=== PATIENT | male | born 1960 | race Caucasian/White ===

== ENCOUNTER 2017-07-02 09:23 | Day surgery (SDC) | payer MEDICAID ==
[2017-07-02] MEDS ORDERED: LR 1,000 ML IV ONE (10:15)
[2017-07-02] MEDS ORDERED: LIDOCAINE 1% 2 ML INJ ID PRN (10:15)
--- NOTE | 2017-07-02 10:43 | PDANEPAE ---
ANE History of Present Illness GERD ANE Past Medical History - Cardiovascular History Hx Hypertension: No Hx Arrhythmias: No Hx Chest Pain: No Hx Coronary Artery / Peripheral Vascular Disease: No Hx CHF / Valvular Disease: No Hx Palpitations: No Cardiovascular History Comment: 2 yrs ago air starvation when pushing car. 7mins to recover. - Pulmonary History Hx COPD: No Hx Asthma/Reactive Airway Disease: No Hx Recent Upper Respiratory Infection: No Hx Oxygen in Use at Home: No Hx Sleep Apnea: No Sleep Apnea Screening Result - Last Documented: Positive Pulmonary History Comment: asthma, with bronchitis - Neurologic History Hx Cerebrovascular Accident: No Hx Seizures: No Hx Dementia: No - Endocrine History Hx Diabetes: No - Renal History Hx Renal Disorders: No - Liver History Hx Hepatic Disorders: No - Neurological & Psychiatric Hx Hx Neurological and Psychiatric Disorders: No - Cancer History Hx Cancer: No - Congenital Disorder History Hx Congenital Disorders: No - GI History Hx Gastrointestinal Disorders: Yes Gastrointestinal History Comment: reflux,gerd 7 yrs ago, cough up food ? aspiration issues. - Other Health History Other Health History: none, pt is on humira 40mg q 2 weeks - Chronic Pain History Chronic Pain: No - Surgical History Prior Surgeries: none ANE Review of Systems Review of Systems: - Exercise capacity METS (RN): 4 METS ANE Patient History - Allergies Allergies/Adverse Reactions: No Known Allergies Allergy (Unverified 07/19/15 08:21) - Home Medications Home Medications: Adalimumab [Humira] 07/02/17 [Last Taken 1 Day Ago ~07/01/17] PRILOSEC 07/02/17 [Last Taken 1 Day Ago ~07/01/17] RX: Colchicine 07/02/17 [Last Taken 1 Day Ago ~07/01/17] - NPO status NPO Since - Liquids (Date): 07/02/17 NPO Since - Liquids (Time): 07:00 NPO Since - Solids (Date): 07/01/17 NPO Since - Solids (Time): 22:00 - Smoking Hx Smoking Status: Never smoked - Family Anes Hx Family Hx Anesthesia Complications: none ANE Labs/Vital Signs - Vital Signs Blood Pressure: 128/89 Heart Rate: 61 Respiratory Rate: 18 O2 Sat (%): 95 Height: 177.8 cm Weight: 95.254 kg ANE Physical Exam - Airway Neck exam: FROM Mallampati Score: Class 2 Mouth exam: normal dental/mouth exam - Pulmonary Pulmonary: no respiratory distress - Cardiovascular Cardiovascular: regular rate and rhythym - ASA Status ASA Status: II
--- NOTE | 2017-07-02 11:17 | PDGENHP ---
History & Physical Chief Complaint: GERD Relevant Physical Exam: GEN: NAD. Cardiac: RRR. Lungs: CTA B. Abd: Soft, nt, nd
[2017-07-02] MEDS ORDERED: PROPOFOL 200 MG/20 ML VIAL ONE ×2 (11:22)
[2017-07-02] MEDS ORDERED: NALOXONE HCL 0.4 MG/ML INJ IVP PRN (11:30)
--- NOTE | 2017-07-02 11:38 | GIREPORT ---
[facility] - Endoscopy Department Patient Name: Krishna Ruiz Procedure Date: 07/02/2017 10:08 AM Patient Type: Outpatient Attending MD/ ER Physician: Jose Liang MD Procedure: Upper GI endoscopy Indications: Heartburn, hoarseness, cough. Providers: Jose Liang MD Medicines: Monitored Anesthesia Care Complications: No immediate complications. Description of Procedure: After obtaining informed consent, the endoscope was passed under direct vision. Throughout the procedure, the patient's blood pressure, pulse, and oxygen saturations were monitored continuous ly. The Endoscope was introduced through the mouth, and advanced to the second part of duodenum. The upper GI endoscopy was accomplished without difficulty. The patient tolerated the procedure well . Findings: The Z-line was irregular and was found 45 cm from the incisors. Biopsies were taken with a cold forceps for histology. Verification of patient identification for the specimen was done by the physician and nurse using the patient's name and date. Estimated blood loss was minimal. Scattered mild inflammation characterized by erosions was found in the gastric antrum. Biopsies were taken with a cold forceps for histology. Verification of patient identification for the specimen was done by the physician and nurse using the patient's name and date. Estimated blood loss wa s minimal. The examined duodenum was normal. Biopsies were taken with a cold forceps for histology. Verific ation of patient identification for the specimen was done by the physician and nurse using the patient 's name and date. Estimated blood loss was minimal. Estimated Blood Loss: Estimated blood loss: none. Post Op Diagnosis: - Z-line irregular, 45 cm from the incisors. Biopsied. - Gastritis. Biopsied. - Normal examined duodenum. Biopsied. Recommendation: - Discharge patient to home (with escort). - Resume previous diet. - Continue present medications. - Use Prilosec (omeprazole) 20 mg PO daily. - Await pathology results. Results are available within 10 days. - Follow up in GI clinic as previously scheduled. - Thank you for allowing me to participate in the care of your patient. Attending Participation: I personally performed the entire procedure. Jose Liang MD Jose Liang MD 07/02/2017 11:38:22 AM Number of Addenda: 0 Note Initiated On: 07/02/2017 10:08 AM Total Procedure Duration Time 0 hours 5 minutes 14 seconds [email or web address]
--- NOTE | 2017-07-02 11:40 | POSTANESTH ---
Post Anesthetic Evaluation Cardiovascular Status: Normal, Stable Respiratory Status: Normal, Stable Level of Consciousness/Mental Status: Can Participate in Eval Pain Control: Adequate, Prn Tx Ordered Complications Possibly Related to Anesthesia: None Noted
[2017-07-02 11:50] VITALS: TEMP 97.7
[2017-07-02 12:52] VITALS: BP 147/73; PULSE 61; RESP 18; O2SAT 97
== END 2017-07-02 12:54 | disposition home or self-care (01) ==
LOC: FSGY 09:23
PROVIDERS: ATTEND Internal Medicine Gastroenterology
PROC: 0DB48ZX Excision of Esophagogastric Junction, Via Natural or Artificial Opening Endoscopic, Diagnostic (ICD-10-PCS; principal; 2017-07-02 11:00)
PROC: 0DB68ZX Excision of Stomach, Via Natural or Artificial Opening Endoscopic, Diagnostic (ICD-10-PCS; principal; 2017-07-02 11:00)
PROC: 0DB98ZX Excision of Duodenum, Via Natural or Artificial Opening Endoscopic, Diagnostic (ICD-10-PCS; principal; 2017-07-02 11:00)
DX: K29.70 Gastritis, unspecified, without bleeding (principal); K21.9 Gastro-esophageal reflux disease without esophagitis; K22.8 Other specified diseases of esophagus; R12 Heartburn; R05 Cough
CPT/HCPCS: J2704